=== PATIENT | female | born 1950 | race Caucasian/White ===

== ENCOUNTER 2018-03-08 22:16 | Emergency (ER) | payer MEDICARE, OTHER, SELFPAY ==
--- NOTE | 2018-03-08 22:16 | DT_ITS ---
This patient was seen during an EMR downtime March 03, 2018 - March 10, 2018. This patient may have a combination of paper and electronic documentation or all paper documentation. All documentation is viewable within the e-chart portion of [email or web address] for each patient visit.
--- NOTE | 2018-03-08 22:30 | RAD_ITS ---
STUDY: X-RAY - LEFT FOOT CLINICAL: Female, 68 years old. Pain and swelling. TECHNIQUE: 3 view(s) of the foot. COMPARISON: None. FINDINGS: There is a small enthesophyte involving the posterior superior calcaneus at the site of insertion of the Achilles tendon. There is anteromedial cortical spurring of the mid body of the talus. Normal remaining tarsal bones. Normal visualized subtalar, talonavicular, calcaneocuboid, tarsal and tarsometatarsal articulations. Normal 1-4 metatarsi. There is a small crescent-shaped ossific density along the mildly irregular lateral cortical margin of the base of the fifth metatarsal, consistent with degenerative change or old, nonunited cortical avulsion injury. 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 Normal tibial and fibular sesamoid bones. Normal interphalangeal joint of the great toe. Normal distal phalanx of the great toe. Normal second through fifth metatarsophalangeal joints. Mild medial paratracheal or spurring at the base of the third distal phalanx, otherwise normal interphalangeal joints and phalanges of the lesser toes. There is mild anterior soft tissue swelling. There is no demonstrated osseous destructive lesion or fracture. RAD/Foot min 3 Views IMPRESSION: 1. Scattered degenerative changes of the foot, as noted. 2. Anterior soft tissue swelling. There is no demonstrated acute osseous abnormality. Electronically Signed: Rex Goldman MD at 22:51 EDT , Service support ,
[2018-03-11 16:41] LABS: BUN 16 mg/dL (7-18); BUN/Creat Ratio 13.6 RATIO (10-20); Calcium,Total 8.9 mg/dL (8.5-10.1); Creatinine, Serum 1.18 mg/dL (0.55-1.02); EST Glomerular Filtration Rate 49 mL/min (>60); Est Glom Filt Rate - Afr Amer 59 mL/min (>60); Glucose 108 mg/dL (74-106); Potassium 3.7 mmol/L (3.5-5.1); Sodium Level 141 mmol/L (136-145)
[2018-03-11 16:42] LABS: Anion Gap 5 (5-15); Chloride 108 mmol/L (98-107)
[2018-03-11 17:25] LABS: Absolute Lymphocyte Count 1.48 X10^3/ul (0.83-4.51); Absolute Neutrophil Count 5.2 X10^3/uL (2.0-7.7); Basophil# 0.06 X10^3/uL; Basophil% 0.8 % (0-1); Eosinophil# 0.28 X10^3/uL; Eosinophils% 3.6 % (0-5); Hematocrit 43.1 % (37-47); Lymphocyte # 1.48 X10^3/ul (4.0); Lymphocyte % 19.1 % (19-41); Mean Corp Hgb Conc 32.5 g/gl (32-36); Mean Corpuscular Hgb 29.9 pg (27.0-32.0); Mean Corpuscular Volume 91.9 fL (81-99); Mean Platelet Vol. 10.5 fl (6.2-12.0); Monocyte# 0.69 X10^3/uL; Monocyte% 8.9 % (0-10); Neutrophil # 5.24 X10^3/uL (2.7-7.7); Neutrophil % 67.5 % (47-70); POSITIVE COUNT NO; POSITIVE DIFFERENTIAL NO; POSITIVE MORPHOLOGY NO; Platelet Count 187 K/mm3 (150-450); RBC Distribution Width CV 13.5 % (11.6-14.6); RBC Distribution Width SD 44.9 fl (35.1-43.9); Red Blood Count 4.69 M/mm3 (4.2-5.4); White Blood Count 7.8 K/mm3 (4.4-11.0)
== END 2018-03-08 23:52 | disposition home or self-care (01) ==
LOC: ED 03-09 16:28
PROVIDERS: Emergency Provider Emergency Medicine
DX: L03.116 Cellulitis of left lower limb (principal); I10 Essential (primary) hypertension; E78.00 Pure hypercholesterolemia, unspecified; Z79.899 Other long term (current) drug therapy
CPT/HCPCS: 73630; 80048; 85025; 96365; 99283; A4216; J0295